=== PATIENT | female | born 1970 | race Caucasian/White ===

== ENCOUNTER 2018-11-08 18:06 | Emergency (ER) | payer OTHER ==
[2018-11-08 18:07] VITALS: BP 160/93
[2018-11-08] MEDS ORDERED: BACITRACIN OINT TOP STA (18:42)
[2018-11-08] MEDS ORDERED: TETANUS/DIPHTHERIA/PERTUSSIS 0.5 ML SYRINGE IM ONE (18:42)
--- NOTE | 2018-11-08 18:43 | ED Physician Documentation ---
PD HPI UPPER EXT INJURY - Stated complaint Stated Complaint: R ARM LAC - Chief complaint Chief Complaint: Laceration - History obtained from History obtained from: Patient - History of Present Illness Location: Right, Forearm Type of injury: Fall, Laceration (broken glass) Where injury occurred: Street Timing - onset: How many minutes ago (30) Timing - duration: Minutes (30) Timing - details: Abrupt onset Pain level max: 4 Pain level now: 3 Improved by: Rest Worsened by: Moving, Palpating Associated symptoms: No: Weakness, Numbness, Tingling, Swelling Contributing factors: No: Anticoagulated - Additonal information Additional information: 48-year-old female was walking in the parking lot, tripped fell and a glass bottle that she was holding broke lacerating the right forearm. Unknown last tetanus. She is right-handed. No numbness or tingling. Review of Systems Constitutional: denies: Fever Musculoskeletal: denies: Neck pain, Back pain Neurologic: denies: Focal weakness, Numbness, Confused, Headache, Head injury, LOC PD PAST MEDICAL HISTORY - Past Medical History Past Medical History: Yes Endocrine/Autoimmune: HyPOthyroidism - Past Surgical History Past Surgical History: No - Present Medications Home Medications: Ambulatory Orders Medication Instructions Recorded Confirmed Levothyroxine Sodium [Synthroid] 150 mcg PO DAILY 11/08/18 11/08/18 - Allergies Allergies/Adverse Reactions: Allergies Allergy/AdvReac Type Severity Reaction Status Date / Time Sulfa (Sulfonamide Allergy Rash Verified 11/08/18 18:45 Antibiotics) - Living Situation Living Situation: reports: With family Living Arrangement: reports: At home - Social History Does the pt have substance abuse?: No PD ED PE NORMAL - Vitals Vital signs reviewed: Yes - General General: Alert and oriented X 3, No acute distress - HEENT HEENT: Atraumatic, PERRL, Moist mucous membranes - Neck Neck: Supple, no meningeal sign, No bony TTP - Cardiac Cardiac: RRR - Respiratory Respiratory: No respiratory distress, Clear bilaterally - Abdomen Abdomen: Soft, Non tender, Non distended - Derm Derm: Warm and dry - Extremities Extremities: Other (Right forearm volar aspect, medial 4 cm laceration, through the subcutaneous fat. Neurovascularly intact. Full range of motion of the hand and wrist. No muscle or tendon injury. 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 No: FB identified, FB removed Skin layer closure: Ellie Other: Patient tolerated well, No complications, Neurovascular intact, Tetanus booster given (tdap) Complexity: Simple PD MEDICAL DECISION MAKING - ED course Complexity details: considered differential, d/w patient ED course: 48-year-old female with a laceration of the right arm. This was cleansed and repaired with ellie. Tolerated well. No foreign bodies visible. Will hold an x-ray at this time as there is a very good visualization within the wound. Tdap given. Warnings of infection and instructions on wound care given at bedside. Also counseled on how to minimize scarring. Patient counseled regarding signs and symptoms for which I believe and urgent re-evaluation would be necessary. Patient with good understanding of and agreement to plan and is comfortable going home at this time This document was made in part using voice recognition software. While efforts are made to proofread this document, sound alike and grammatical errors may occur. Departure - Departure Disposition: 01 Home, Self Care Clinical Impression: Laceration of right forearm Qualifiers: Encounter type: initial encounter Qualified Code(s): S51.811A - Laceration without foreign body of right forearm, initial encounter Condition: Good Instructions: ED Laceration Ext Sutr Stap Tape Follow-Up: your,doctor in 10-14 days for staple removal [Other] Comments: Follow-up with your doctor in 10-14 days for staple removal. Return if you worsen, especially if you notice redness swelling or drainage from the wound as these may be signs is becoming infected. Keep the wound clean Discharge Date/Time: 11/08/18 18:52
== END 2018-11-08 18:52 | disposition home or self-care (01) ==
LOC: EDUNIT# → ED 18:06
DX: S51.811A Laceration without foreign body of right forearm, initial encounter (principal); W01.110A Fall on same level from slipping, tripping and stumbling with subsequent striking against sharp glass, initial encounter; Y92.481 Parking lot as the place of occurrence of the external cause; Z23 Encounter for immunization
CPT/HCPCS: 12002; 90471; 90715; 99282; 99283; A9270

== ENCOUNTER 2021-05-31 10:59 | Outpatient (CLI) | payer OTHER ==
--- NOTE | 2021-06-06 09:36 | Mammography Report ---
BILATERAL DIGITAL SCREENING MAMMOGRAM 3D/2D: 05/31/2021 CLINICAL: Family history of breast cancer. Routine screening. Comparison is made to exams dated: 10/09/2017 mammogram, 08/31/2015 mammogram, 07/15/2013 mammogram, 09/04/2011 mammogram, and 08/03/2010 mammogram - [facility]. There are scattered fibrogland ular elements in both breasts. No significant masses, calcifications, or other findings are seen in either breast. There has been no significant interval change. IMPRESSION: NEGATIVE There is no mammographic evidence of malignancy. A 1 year screening mammogram is recommended. This exam was interpreted at Station ID: [id number]. NOTE: For mammograms, a report in lay terms will be sent to the patient. Approximately 15% of breast malignancies will not be visualized mammographically. In the management of a palpable breast mass, a negative mammogram must not discourage biopsy of a clinically suspicious lesion. Electronically Signed By: Garry Benedict M.D., jr/bib:06/02/2021 12:46:05 ACR BI-RADS Category 1: Negative 3341F PARENCHYMAL PATTERN: (A) - The breast(s) demonstrate(s) scattered fibroglandular densities. BI-RADS CATEGORY: (1) - 1 RECOMMENDATION: (ANNUAL) - Recommend routine annual screening mammography. [id number] 1 year screening LATERALITY: (B)
== END 2021-05-31 11:00 | disposition home or self-care (01) ==
LOC: DI.N 10:59
DX: Z12.31 Encounter for screening mammogram for malignant neoplasm of breast (principal); Z80.3 Family history of malignant neoplasm of breast

== ENCOUNTER 2023-02-19 08:33 | Emergency (ER) | payer OTHER ==
--- NOTE | 2023-02-19 09:05 | ED Physician Documentation ---
PD HPI ABD PAIN - Stated complaint Stated Complaint: ABD PX - Chief complaint Chief Complaint: Abd Pain - History obtained from History obtained from: Patient - Additional information Additional information: The patient comes to the emergency department chief complaint of left lower quadrant abdominal pain for the last 4 days. She states that it comes on and off and is not excruciatingly painful but that it just keeps coming back and seems to be persisting. She denies any fevers or chills. No constipation or diarrhea. No blood in her stools. No dysuria or frequency. No blood in her urine. No flank pain. No nausea, vomiting, or upper abdominal pain. She had 3 C-sections but otherwise no abdominal surgeries. No other complaints at this time. 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 - Present Medications Home Medications: Ambulatory Orders Medication Instructions Recorded Confirmed Levothyroxine Sodium [Synthroid] 150 mcg PO DAILY 11/08/18 02/19/23 Ciprofloxacin HCl [Cipro] 500 mg PO BID #20 tablet 02/19/23 metroNIDAZOLE [Flagyl] 500 mg PO BID 10 Days #20 tablet 02/19/23 - Allergies Allergies/Adverse Reactions: Allergies Allergy/AdvReac Type Severity Reaction Status Date / Time Sulfa (Sulfonamide Allergy Rash Verified 11/08/18 18:45 Antibiotics) - Social History Does the pt smoke?: No Smoking Status: Never smoker Does the pt have substance abuse?: No PD ED PE NORMAL - Vitals Vital signs reviewed: Yes - General General: Alert and oriented X 3, No acute distress, Well developed/nourished - HEENT HEENT: Atraumatic, PERRL, EOMI, Moist mucous membranes - Neck Neck: Supple, no meningeal sign - Cardiac Cardiac: RRR, No murmur, Strong equal pulses - Respiratory Respiratory: No respiratory distress, Clear bilaterally - Abdomen Abdomen: Soft, Non distended, Other (Mild tenderness to palpation left lower quadrant, no rebound or guarding.) - Derm Derm: Normal color, Warm and dry, No rash - Extremities Extremities: No deformity, No edema - Neuro Neuro: Alert and oriented X 3 - Psych Psych: Normal mood, Normal affect Results - Vitals Vitals: Vital Signs - 24 hr 02/19/23 02/19/23 08:43 10:43 Temperature 36.9 C Heart Rate 68 68 Respiratory 15 16 Rate Blood Pressure 122/85 H 132/95 H O2 Saturation 99 Oxygen O2 Source Room air - Labs Labs: Laboratory Tests 02/19/23 02/19/23 02/19/23 08:52 08:52 09:04 WBC 5.7 RBC 4.84 Hgb 13.5 Hct 41.6 MCV 86.0 MCH 27.9 MCHC 32.5 RDW 12.7 Plt Count 269 MPV 10.2 Neut # (Auto) 3.8 Lymph # (Auto) 1.3 L [place] # (Auto) 0.5 Eos # (Auto) 0.1 Baso # (Auto) 0.0 Absolute Nucleated RBC 0.00 Nucleated RBC % 0.0 Sodium 139 Potassium 4.2 Chloride 106 Carbon Dioxide 26 Anion Gap 7.0 BUN 20 Creatinine 0.8 Estimated GFR (MDRD) 74 L Glucose 102 H Calcium 9.7 Total Bilirubin 0.6 AST 18 ALT 22 Alkaline Phosphatase 75 Total Protein 8.0 Albumin 4.3 Globulin 3.7 Albumin/Globulin Ratio 1.2 Lipase 36 Urine Color LT. YELLOW Urine Clarity CLEAR Urine pH 5.5 Ur Specific [place] <=1.005 Urine Protein NEGATIVE Urine Glucose (UA) NEGATIVE Urine Ketones NEGATIVE Urine Occult Blood NEGATIVE Urine Nitrite NEGATIVE Urine Bilirubin NEGATIVE Urine Urobilinogen 0.2 (NORMAL) Ur Leukocyte Esterase NEGATIVE Ur Microscopic Review NOT INDICATED Urine Culture Comments NOT INDICATED - Rads (name of study) CT abdomen pelvis Relevant Findings:: Final report received, See rad report (Diverticulitis) PD Medical Decision Making - ED course Complexity details: reviewed results, re-evaluated patient, considered differential, d/w patient ED course: The patient was worked up with CBC, ER abdominal panel, and CT scan of the abdomen pelvis. Laboratory studies were unremarkable. CT showed mild diverticulitis in the left lower abdomen. Patient was treated with antibiotics here in the emergency department and given prescriptions for the same. We have discussed the usual indications for return. Departure - Departure Disposition: 01 Home, Self Care Clinical Impression: Diverticulitis of gastrointestinal tract Condition: Stable Instructions: ED Diverticulitis Prescriptions: Ciprofloxacin HCl [Cipro] 500 mg PO BID #20 tablet metroNIDAZOLE [Flagyl] 500 mg PO BID 10 Days #20 tablet Comments: Your blood work looks good. Your CT scan shows diverticulitis which is not surprising. You have been started on antibiotics for this, but will need to take antibiotics for total of 10 days to complete the course. The prescriptions have been electronically transmitted to the [facility] pharmacy in [place], which is your pharmacy of choice on record. Please follow-up with your primary doctor as needed. Discharge Date/Time: 02/19/23 10:43
[2023-02-19 09:14] LABS: BILIRUBIN,URINE NEGATIVE (NEGATIVE); GLUCOSE, URINE (UA) NEGATIVE (NEGATIVE); KETONES,URINE (UA) NEGATIVE (NEGATIVE); LEUKOCYTE ESTERASE, URINE NEGATIVE (NEGATIVE); NITRITE,URINE NEGATIVE (NEGATIVE); OCCULT BLOOD,URINE NEGATIVE (NEGATIVE); PH,URINE 5.5 PH (5.0-7.5); PROTEIN,URINE NEGATIVE (NEGATIVE); UROBILINOGEN,URINE 0.2 (NORMAL) E.U./dL (NORMAL)
[2023-02-19 09:22] LABS: ALBUMIN 4.3 g/dL (3.2-5.5); ALBUMIN/GLOBULIN RATIO 1.2 (1.0-2.2); BILIRUBIN,TOTAL 0.6 mg/dL (0.2-1.0); CALCIUM 9.7 mg/dL (8.5-10.3); CREATININE 0.8 mg/dL (0.4-1.0); POTASSIUM 4.2 mmol/L (3.5-5.0)
[2023-02-19 09:23] LABS: CLARITY,URINE CLEAR (CLEAR)
[2023-02-19 09:50] LABS: BASOPHILS % (AUTO) 0.5 %; EOSINOPHILS # (AUTO) 0.1 10^3/uL (0.0-0.7); EOSINOPHILS % (AUTO) 2.1 %; HCT - HEMATOCRIT 41.6 % (37.0-47.0); HGB - HEMOGLOBIN 13.5 g/dL (12.0-16.0); LYMPHOCYTES # (AUTO) 1.3 10^3/uL (1.5-3.5); LYMPHOCYTES % (AUTO) 22.9 %; MEAN CORPUSCULAR HEMOGLOBIN 27.9 pg (27.0-31.0); MEAN CORPUSCULAR HGB CONC 32.5 g/dL (32.0-36.0); MEAN PLATELET VOLUME 10.2 fL (7.9-10.8); MONOCYTES # (AUTO) 0.5 10^3/uL (0.0-1.0); NEUTROPHILS # (AUTO) 3.8 10^3/uL (1.5-6.6); NEUTROPHILS % (AUTO) 66.3 %; PLT - PLATELET COUNT 269 10^3/uL (130-450); RED BLOOD COUNT 4.84 10^6/uL (4.20-5.40); RED CELL DISTRIBUTION WIDTH 12.7 % (12.0-15.0); WHITE BLOOD COUNT 5.7 x10^3/uL (4.8-10.8)
--- NOTE | 2023-02-19 10:11 | CT Report ---
PROCEDURE: ABDOMEN/PELVIS W INDICATIONS: LLQ pain CONTRAST: 100ml Omni 350 TECHNIQUE: After the administration of intravenous contrast, 5 mm thick sections acquired from the diaphragms to the symphysis. 5 mm thick coronal and sagittal reformats were acquired. For radiation dose reducti on, the following was used: automated exposure control, adjustment of mA and/or kV according to shadia ent size. COMPARISON: None FINDINGS: Image quality: Excellent. Lung bases and heart: Unremarkable. Liver: Flash filling of the hemangioma, right lobe of liver anterior segment. No solid masses. Mild d iffuse hepatic steatosis. Gallbladder and biliary tree: No radiopaque stones or wall thickening. No biliary dilation. Spleen: No splenomegaly. Pancreas: No pancreatic ductal dilation. Adrenals: No adrenal nodule. Kidneys and ureters: No hydronephrosis. No renal cystic lesion which requires follow up. No solid mas s. Bowel and peritoneum: No bowel distension. No pathologic free fluid. There is sigmoid diverticulosis with mild before meals sigmoid diverticulitis. No free air or abscess cavity. Lymph nodes: No central or retroperitoneal adenopathy. Vessels: No infrarenal aortic aneurysm. PELVIS Reproductive organs: Unremarkable. Bladder: No abnormal wall thickening, accounting for underdistension. Pelvic lymph nodes: No pelvic adenopathy by size criteria. Bones: No aggressive osseous abnormality. Other: No significant ventral or inguinal hernia. IMPRESSION: 1. Mild uncomplicated sigmoid diverticulitis. 2. Mild diffuse hepatic steatosis. 3. Incidental liver hemangioma. Reviewed by: Cornel Lucas MD on 02/19/2023 10:10 AM PDT Approved by: Cornel Lucas MD on 02/19/2023 10:10 AM PDT Station ID: [id number]
[2023-02-19] MEDS ORDERED: CIPROFLOXACIN 250 MG TABLET PO STA (10:29)
[2023-02-19] MEDS ORDERED: metroNIDAZOLE 250 MG TABLET PO STA (10:29)
[2023-02-19 10:46] VITALS: BP 132/95
== END 2023-02-19 10:43 | disposition home or self-care (01) ==
LOC: ED 08:33
DX: K57.32 Diverticulitis of large intestine without perforation or abscess without bleeding (principal)
CPT/HCPCS: 36415; 74177; 80053; 81003; 83690; 85025; 99284; A9270; Q9967; 81001; 87086

== ENCOUNTER 2023-03-05 11:19 | Emergency (ER) | payer OTHER ==
--- NOTE | 2023-03-05 11:30 | ED Physician Documentation ---
PD HPI ABD PAIN - Stated complaint Stated Complaint: ABD PX - Chief complaint Chief Complaint: Abd Pain - History of Present Illness Quality: Cramping Location: LLQ Radiation: Chest Worsened by: Palpation Associated symptoms: Nausea, Vomiting, Diarrhea Similar symptoms before: Diagnosis - Additional information Additional information: 53-year-old female with a past medical history significant for diverticulitis diagnosed on 02/19/2023. The patient has been on antibiotics and had been doing better but woke up today with increasing left lower quadrant pain. Pain is intermittent, cramping and spasming in nature, and radiates into the mid epigastrium and left chest. She has associated nausea, vomiting, and diarrhea that is nonbloody. She has not had a fever. She denies any dysuria urgency or frequency, no cough or URI symptoms, no chest pain or difficulty breathing. She has been taking antibiotics, Cipro and Flagyl, Though she states that she completed the Flagyl A few days ago but is still taking the Cipro though they were both a 10-day course. 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 - Present Medications Home Medications: Ambulatory Orders Medication Instructions Recorded Confirmed Levothyroxine Sodium [Synthroid] 150 mcg PO DAILY 11/08/18 03/05/23 Amox/Clav 875/125 [Augmentin 1 tablet PO Q12H 03/05/23 03/05/23 875/125 Tab] Dicyclomine [Bentyl] 10 mg PO QID PRN #20 cap 03/05/23 Ondansetron Odt [Zofran] 4 mg TL Q6H PRN #10 tablet 03/05/23 - Allergies Allergies/Adverse Reactions: Allergies Allergy/AdvReac Type Severity Reaction Status Date / Time Sulfa (Sulfonamide Allergy Rash Verified 03/05/23 11:21 Antibiotics) - Social History Does the pt smoke?: No Smoking Status: Never smoker Does the pt have substance abuse?: No PD ED PE NORMAL - Vitals Vital signs reviewed: Yes - General General: Alert and oriented X 3, No acute distress, Well developed/nourished - HEENT HEENT: Atraumatic, Pharynx benign - Neck Neck: Supple, no meningeal sign, No JVD - Cardiac Cardiac: RRR, No murmur, No gallop, No rub - Respiratory Respiratory: No respiratory distress, Clear bilaterally - Abdomen Abdomen: Normal bowel sounds, Soft, Non distended, No organomegaly, Other (Mild left lower quadrant tenderness without guarding.) - Back Back: No CVA TTP, No spinal TTP - Derm Derm: Normal color, Warm and dry, No rash - Neuro Neuro: Alert and oriented X 3 Eye Opening: Spontaneous Motor: Obeys Commands Verbal: Oriented GCS Score: 15 - Psych Psych: Normal mood, Normal affect Results - Vitals Vitals: Vital Signs - 24 hr 03/05/23 03/05/23 03/05/23 11:21 13:37 14:17 Temperature 36.4 C L 36.9 C Heart Rate 66 59 L 62 Respiratory 18 17 20 Rate Blood Pressure 127/87 H 140/81 H 140/81 H O2 Saturation 99 99 100 Oxygen O2 Source Room air - Labs Labs: Laboratory Tests 03/05/23 03/05/23 03/05/23 11:37 11:37 12:05 WBC 11.9 H RBC 5.12 Hgb 14.4 Hct 43.3 MCV 84.6 MCH 28.1 MCHC 33.3 RDW 12.9 Plt Count 286 MPV 10.1 Neut # (Auto) 10.3 H Lymph # (Auto) 1.0 L [place] # (Auto) 0.4 Eos # (Auto) 0.0 Baso # (Auto) 0.0 Absolute Nucleated RBC 0.00 Nucleated RBC % 0.0 Sodium 139 Potassium 4.1 Chloride 106 Carbon Dioxide 25 Anion Gap 8.0 BUN 14 Creatinine 0.7 Estimated GFR (MDRD) 87 L Glucose 113 H Calcium 9.4 Total Bilirubin 0.5 AST 28 ALT 42 Alkaline Phosphatase 63 Total Protein 7.7 Albumin 4.3 Globulin 3.4 Albumin/Globulin Ratio 1.3 Lipase 39 Urine Color YELLOW Urine Clarity CLEAR Urine pH 5.0 Ur Specific [place] >=1.030 H Urine Protein NEGATIVE Urine Glucose (UA) NEGATIVE Urine Ketones NEGATIVE Urine Occult Blood NEGATIVE Urine Nitrite NEGATIVE Urine Bilirubin NEGATIVE Urine Urobilinogen 0.2 (NORMAL) Ur Leukocyte Esterase NEGATIVE Ur Microscopic Review NOT INDICATED Urine Culture Comments NOT INDICATED Urine HCG, Qual NEGATIVE Stl C. diff Tox B Gene 03/05/23 13:46 WBC RBC Hgb Hct MCV MCH MCHC RDW Plt Count MPV Neut # (Auto) Lymph # (Auto) [place] # (Auto) Eos # (Auto) Baso # (Auto) Absolute Nucleated RBC Nucleated RBC % Sodium Potassium Chloride Carbon Dioxide Anion Gap BUN Creatinine Estimated GFR (MDRD) Glucose Calcium Total Bilirubin AST ALT Alkaline Phosphatase Total Protein Albumin Globulin Albumin/Globulin Ratio Lipase Urine Color Urine Clarity Urine pH Ur Specific [place] Urine Protein Urine Glucose (UA) Urine Ketones Urine Occult Blood Urine Nitrite Urine Bilirubin Urine Urobilinogen Ur Leukocyte Esterase Ur Microscopic Review Urine Culture Comments Urine HCG, Qual Stl C. diff Tox B Gene NEGATIVE - Rads (name of study) No standard instances Relevant Findings:: Final report received PD Medical Decision Making - ED course Complexity details: reviewed old records, reviewed results, re-evaluated patient, considered differential, d/w patient ED course: 53-year-old female who Presents with lower abdominal pain. She is about 2 weeks out from diagnosis of diverticulitis and Has been on Flagyl and Cipro. After further discussion with patient she actually [place] why she is still on antibiotics. There was concern for ongoing diverticulitis versus abscess versus colitis or other abdominal infection given her history and physical exam today. We obtained labs which are generally reassuring, she has a mild leukocytosis but no other acute findings. I did proceed with a CT scan given history of diverticulitis and concern for abscess and is showed signs of colitis But diverticulitis had resolved. Given the patient was recently on antibiotics and did have some diarrhea, there was concern for C. difficile colitis, a C. difficile PCR was negative however. The patient was given a prescription for p.o. vancomycin for possible C. difficile however this has been canceled Given negative PCR. We will therefore treat supportively for colitis with clear liquid diet, dicyclomine, Tylenol as needed, and antiemetics as needed. The patient advised to return if she develops worsening symptoms such as fever, vomiting, or increased pain. Departure - Departure Disposition: 01 Home, Self Care Clinical Impression: Colitis Condition: Good Instructions: Abdominal Pain Prescriptions: Dicyclomine [Bentyl] 10 mg PO QID PRN #20 cap PRN Reason: Abdominal Pain Vancomycin [Vancocin] 125 mg PO QID 10 Days #40 cap Ondansetron Odt [Zofran] 4 mg TL Q6H PRN #10 tablet PRN Reason: Nausea / Vomiting Comments: Your CT scan today shows resolution of your diverticulitis but there is no signs of colitis which may be secondary to antibiotics that you have been on recently. I am going to treat this while we are waiting on your stool sample. You will take a medication called vancomycin 4 times a day for the next 10 days. I have also given you a nausea medicine and a medicine for the cramping. Pain usually subsides quite quickly after starting on this medication. If you have worsening symptoms, fever or other new concerns over the next several days, please return to the ER. Medications were sent to [facility] pharmacy Discharge Date/Time: 03/05/23 14:26
[2023-03-05 11:49] LABS: BASOPHILS % (AUTO) 0.3 %; EOSINOPHILS % (AUTO) 0.3 %; HCT - HEMATOCRIT 43.3 % (37.0-47.0); HGB - HEMOGLOBIN 14.4 g/dL (12.0-16.0); LYMPHOCYTES % (AUTO) 8.6 %; MEAN CORPUSCULAR HEMOGLOBIN 28.1 pg (27.0-31.0); MEAN CORPUSCULAR HGB CONC 33.3 g/dL (32.0-36.0); MEAN CORPUSCULAR VOLUME 84.6 fL (81.0-99.0); MEAN PLATELET VOLUME 10.1 fL (7.9-10.8); MONOCYTES # (AUTO) 0.4 10^3/uL (0.0-1.0); MONOCYTES % (AUTO) 3.5 %; NEUTROPHILS # (AUTO) 10.3 10^3/uL (1.5-6.6); NEUTROPHILS % (AUTO) 86.9 %; PLT - PLATELET COUNT 286 10^3/uL (130-450); RED BLOOD COUNT 5.12 10^6/uL (4.20-5.40); RED CELL DISTRIBUTION WIDTH 12.9 % (12.0-15.0); WHITE BLOOD COUNT 11.9 x10^3/uL (4.8-10.8)
[2023-03-05 11:56] LABS: ALBUMIN 4.3 g/dL (3.2-5.5); ALBUMIN/GLOBULIN RATIO 1.3 (1.0-2.2); BILIRUBIN,TOTAL 0.5 mg/dL (0.2-1.0); CALCIUM 9.4 mg/dL (8.5-10.3); CREATININE 0.7 mg/dL (0.4-1.0); POTASSIUM 4.1 mmol/L (3.5-5.0); TOTAL PROTEIN 7.7 g/dL (6.7-8.2)
[2023-03-05] MEDS ORDERED: iohexoL-300 100 ML VIAL ONE (12:08)
[2023-03-05 12:24] LABS: BILIRUBIN,URINE NEGATIVE (NEGATIVE); GLUCOSE, URINE (UA) NEGATIVE (NEGATIVE); KETONES,URINE (UA) NEGATIVE (NEGATIVE); LEUKOCYTE ESTERASE, URINE NEGATIVE (NEGATIVE); NITRITE,URINE NEGATIVE (NEGATIVE); OCCULT BLOOD,URINE NEGATIVE (NEGATIVE); PROTEIN,URINE NEGATIVE (NEGATIVE); UROBILINOGEN,URINE 0.2 (NORMAL) E.U./dL (NORMAL)
[2023-03-05 12:26] LABS: CLARITY,URINE CLEAR (CLEAR); HCG UR QUAL NEGATIVE
--- NOTE | 2023-03-05 12:52 | CT Report ---
PROCEDURE: ABDOMEN/PELVIS W INDICATIONS: llq pain, recent diverticulitis, sx worse CONTRAST: 100ml Omni 300 TECHNIQUE: After the administration of intravenous contrast, 5 mm thick sections acquired from the diaphragms to the symphysis. 5 mm thick coronal and sagittal reformats were acquired. For radiation dose reducti on, the following was used: automated exposure control, adjustment of mA and/or kV according to shadia ent size. COMPARISON: CT 02/19/2023 FINDINGS: Image quality: Excellent. Lung bases and heart: Unremarkable. Liver: Hemangioma in segment 5. Gallbladder and biliary tree: No radiopaque stones or wall thickening. No biliary dilation. Spleen: No splenomegaly. Pancreas: No pancreatic ductal dilation. Adrenals: No adrenal nodule. Kidneys and ureters: No hydronephrosis. No renal cystic lesion which requires follow up. No solid mas s. Bowel and peritoneum: Moderate wall thickening of the ascending and transverse colon. Resolved inflam matory changes of the sigmoid colon. Lymph nodes: No central or retroperitoneal adenopathy. Vessels: No infrarenal aortic aneurysm. PELVIS Reproductive organs: Unremarkable. Bladder: No abnormal wall thickening, accounting for underdistension. Pelvic lymph nodes: No pelvic adenopathy by size criteria. Bones: No aggressive osseous abnormality. Other: Tiny umbilical hernia containing fat. IMPRESSION: Resolved diverticulitis. Moderate wall thickening of the ascending and transverse colon, suggestive of colitis. Assuming recen t antibiotic use, C. difficile is a consideration. Reviewed by: Brian Emanuel on 03/05/2023 12:51 PM PDT Approved by: Brian Emanuel on 03/05/2023 12:51 PM PDT Station ID: [id number]
[2023-03-05 13:42] VITALS: BP 140/81
[2023-03-05] MEDS ORDERED: iohexoL-300 100 ML VIAL IVP ONE (14:28)
== END 2023-03-05 14:26 | disposition home or self-care (01) ==
LOC: ED 11:19
DX: K52.9 Noninfective gastroenteritis and colitis, unspecified (principal)
CPT/HCPCS: 36415; 74177; 80053; 81003; 81025; 83690; 85025; 87493; 99284; Q9967; 81001; 87086